=== PATIENT | male | born 2000 | race Caucasian/White ===

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

== ENCOUNTER 2020-09-19 22:31 | Emergency (ER) | payer OTHER ==
--- NOTE | 2020-09-19 22:49 | ERPHSYRPT ---
- History of Present Illness Source: patient, police Exam Limitations: other (Pt refusing labs/PE) Patient Subjective Stated Complaint: "I was drinking. "I had 6 beers." Triage Nursing Assessment: Patient refused to answer questions as he refused to answer. Physician History: Pt under arrest for possible DUI. Pt alert and oriented but refusing labs and PE. He has a good airway. Timing/Duration: today Severity of Symptoms-Max: none Severity of Symptoms-Current: none Associated Symptoms: denies symptoms Previous symptoms: no prior history Allergies/Adverse Reactions: Sulfa (Sulfonamide Antibiotics) Allergy (Verified 09/19/20 22:33) Home Medications: No Reportable Medications [No Reported Medications] 09/19/20 [History] Hx Tetanus, Diphtheria Vaccination/Date Given: Yes Hx Influenza Vaccination/Date Given: No Hx Pneumococcal Vaccination/Date Given: No Travel Risk - International Travel Have you traveled outside of the country in past 3 weeks: No - Coronavirus Screening Are you exhibiting any of the following symptoms?: No Close contact with a COVID-19 positive Pt in past 14-21 Days: No - Vaccine Status Have you recieved a Covid-19 vaccination: No - Past Medical History Pertinent Past Medical History: No Neurological History: No Pertinent History ENT History: No Pertinent History Cardiac History: No Pertinent History Respiratory History: No Pertinent History Endocrine Medical History: No Pertinent History Musculoskeletal History: No Pertinent History GI Medical History: No Pertinent History History: No Pertinent History Psycho-Social History: No Pertinent History Male Reproductive Disorders: No Pertinent History - Past Surgical History Past Surgical History: No Neuro Surgical History: No Pertinent History Cardiac: No Pertinent History Respiratory: No Pertinent History Gastrointestinal: No Pertinent History Genitourinary: No Pertinent History Musculoskeletal: No Pertinent History Male Surgical History: No Pertinent History - Social History Smoking Status: Never smoker Exposure to second hand smoke: No Drug Use: none Patient Lives Alone: No Significant Family History: no pertinent family hx - Review of Systems All Other Systems: Unable due to condition (Pt refuses) - Nursing Vital Signs Nursing Vital Signs: Initial Vital Signs Temperature 98.6 F 09/19/20 22:32 Pulse Rate 75 09/19/20 22:32 Respiratory Rate 16 09/19/20 22:32 Blood Pressure 135/77 09/19/20 22:32 O2 Sat by Pulse Oximetry 98 09/19/20 22:32 Pain Scale Pain Intensity 0 - Physical Exam Neurological Exam: alert, oriented x 3 SpO2: 98 Comments: Pt refuses PE. - Course Nursing assessment & vital signs reviewed: Yes - Progress Progress Note: 09/19/20 22:45 Pt w good airway and refuses PE/Lab work Counseled pt/family regarding: need for follow-up - Departure Departure Disposition: Prison/[facility] Clinical Impression: Medical clearance for incarceration Condition: Stable Critical Care Time: No Additional Instructions: Have intermediate physician see and examine pt Return to ER as needed
[2020-09-19 22:54] VITALS: BP 121/72; PULSE 76; O2SAT 99
== END 2020-09-19 22:54 | disposition home or self-care (01) ==
LOC: ED 22:31
DX: Z02.89 Encounter for other administrative examinations (principal)
CPT/HCPCS: 99283